=== PATIENT | female | born 1980 | race Caucasian/White ===

== ENCOUNTER 2017-11-30 10:45 | Inpatient (IN) | payer BC ==
[~2017-11-30] VITALS: Ht 170.2 cm; Wt 72.7 kg
[~2017-11-30 10:45] MED LIST: IBU600 MG PO; MOTRIN 600600 MG/TAB PO; PERCOCET 325 MG1 TA2 PO; SENOKOT S 50 MG1 TAB PO
[2017-12-08] VITALS (10 sets, daily range): BP systolic 11–131; BP diastolic 53–66; PULSE 60–78; TEMP 97.4–98.2
[2017-12-08] MEDS ORDERED: PRENATAL (15:51)
[2017-12-08] MEDS ORDERED: PROFERRIN ES12 MG PO (15:51)
[2017-12-08 16:24] LABS: BASO % 0.4 % (0.0-2.0); EOS # 0.1 (0.0-0.7); EOS % 0.6 % (0-4.0); GRAN # 7.3 (1.4-6.5); GRAN % 76.6 % (42.2-75.2); HEMOGLOBIN 10.6 g/dl (12.5-16.0); LYMPH # 1.3 (1.2-3.4); LYMPH % 13.3 % (20.0-51.0); MEAN CELL VOLUME 89 fl (80.0-100.0); MEAN CORPUSCULAR HEMOGLOBIN 31 pg (27.0-31.0); MEAN CORPUSCULAR HGB CONC 34 g/dl (33.0-37.0); MEAN PLATELET VOLUME 12.2 fl (7.4-10.4); MONO # 0.8 (0.1-0.6); MONO % 8.6 % (1.7-9.3); PLATELET COUNT 220 K/mm3 (130-400); RED BLOOD COUNT 3.47 M/mm3 (4.10-5.30); REDCELL DISTRIBUTION WIDTH-CV 13.1 % (11.5-14.5)
[2017-12-09] VITALS (37 sets, daily range): BP systolic 96–119; BP diastolic 52–66; PULSE 52–83; TEMP 97.3–98
[2017-12-10 09:08] VITALS: BP 104/55; PULSE 79; TEMP 98.4
[2017-12-10] MEDS ORDERED: MOTRIN 600600 MG/TAB PO (09:31)
[2017-12-10] MEDS ORDERED: PERCOCET 325 MG1 TA2 PO (09:36)
== END 2017-12-10 11:00 | disposition home or self-care (01) | DRG 775 ==
LOC: LDR 12-08 14:45 → OB 12-09 08:49 → LDR 12-10 10:44 → OB 12-10 11:00
PROVIDERS: Obstetrics & Gynecology
PROC: 10E0XZZ Delivery of Products of Conception, External Approach (ICD-10-PCS; principal; 2017-12-09)
PROC: 0KQM0ZZ Repair Perineum Muscle, Open Approach (ICD-10-PCS; 2017-12-09)
DX: O70.1 Second degree perineal laceration during delivery (principal); O69.81X0 Labor and delivery complicated by cord around neck, without compression, not applicable or unspecified; Z3A.39 39 weeks gestation of pregnancy; Z37.0 Single live birth
CPT/HCPCS: J1200; J2590; J2795; J7120

== ENCOUNTER 2019-02-22 08:00 | Outpatient (RCR) | payer BC ==
[~2019-02-22 08:00] MED LIST changes: +PRENATAL; +PROFERRIN ES12 MG PO
== END 2019-04-10 15:37 | disposition home or self-care (01) ==
LOC: MKS.ESL.PT 08:00
DX: M70.62 Trochanteric bursitis, left hip (principal)

== ENCOUNTER → 2021-12-25 | Outpatient (CLI) | payer OTHER | LOC: MC.RAD 16:33 | DX: Z12.31 Encounter for screening mammogram for malignant neoplasm of breast (principal); N63.10 Unspecified lump in the right breast, unspecified quadrant ==

== ENCOUNTER → 2022-01-08 | Outpatient (CLI) | payer BC | LOC: MC.RAD 09:53 | DX: N63.10 Unspecified lump in the right breast, unspecified quadrant (principal) ==

== ENCOUNTER → 2024-01-06 | Outpatient (CLI) | payer BC | LOC: MC.RAD 07:59 | DX: Z12.31 Encounter for screening mammogram for malignant neoplasm of breast (principal) ==